=== PATIENT | male | born 1980 | race Two or more races ===

== ENCOUNTER 2025-09-04 08:47 | Emergency (ER) | payer SELFPAY ==
[~2025-09-04] VITALS: Ht 188 cm; Wt 128.1 kg
[2025-09-04 09:11] VITALS: BP 145/107; PULSE 105; RESP 16; TEMP 98.7; O2SAT 99
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
[2025-09-04] MEDS ORDERED: IBUP-1456 PO (09:32)
[2025-09-04] MEDS: KETOROLAC TROMETH 60MG/2ML VIAL IM ONE (09:38)
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
== END 2025-09-04 09:43 | disposition home or self-care (01) ==
LOC: ER 08:47 → EEVIPCON 08:47 → ER 09:43
DX: S93.402A Sprain of unspecified ligament of left ankle, initial encounter (principal); V89.2XXA Person injured in unspecified motor-vehicle accident, traffic, initial encounter; Y93.I9 Activity, other involving external motion; Y92.488 Other paved roadways as the place of occurrence of the external cause; Y99.8 Other external cause status
CPT/HCPCS: 73610; 96372; 99283; J1885